=== PATIENT | female | born 1990 | race Caucasian/White ===

== ENCOUNTER 2018-06-29 02:36 | Emergency (ER) | payer MEDICAID ==
[~2018-06-29] VITALS: Ht 162.6 cm; Wt 69.2 kg
[~2018-06-29 02:36] MED LIST: [UNRECOGNIZED DRUG - CODE] PO
[2018-06-29 02:42] VITALS: BP 110/75
== END 2018-06-29 03:41 | disposition left against medical advice (07) ==
LOC: ER 03:11
DX: Z53.21 Procedure and treatment not carried out due to patient leaving prior to being seen by health care provider (principal)

== ENCOUNTER 2021-11-02 14:19 | Emergency (ER) | payer MEDICAID ==
[~2021-11-02] VITALS: Ht 167.6 cm; Wt 82.0 kg
[~2021-11-02 14:19] MED LIST changes: +NORE0.3552 PO; -[UNRECOGNIZED DRUG - CODE] PO
[2021-11-02] MEDS ORDERED: ONDANSETRON 4MG ODT PO STA (15:50)
[2021-11-02] MEDS ORDERED: HYDROCODONE/ACETAMINOPHEN 5/325MG TABLET PO STA (15:50)
[2021-11-02] MEDS ORDERED: FAMOTIDINE 20MG TABLET PO ONE (16:00)
[2021-11-02 16:21] LABS: MEAN CORPUSCULAR HEMOGLOBIN 29.8 pg (28.0-32.0); MEAN CORPUSCULAR VOLUME 91.4 fL (81.0-99.0); MEAN PLATELET VOLUME 9.4 fl (7.4-10.4); PLATELET 288 x1000/uL (130-400); RED BLOOD CELL COUNT 5.03 mill/uL (4.2-5.4); RED CELL DISTRIBUTION WIDTH 13.7 % (11.6-14.6)
[2021-11-02 16:28] LABS: CHLORIDE 111 mEq/L (98-107)
[2021-11-02 16:35] LABS: HCG SCREEN NEGATIVE
[2021-11-02 17:02] VITALS: BP 120/74
[2021-11-02] MEDS ORDERED: ONDANSETRON HCL 4MG/2ML INJ IV ONE (17:45)
[2021-11-02] MEDS ORDERED: LOPERAMIDE HCL 2MG CAPSULE PO ONE (17:45)
[2021-11-02] MEDS ORDERED: SODIUM CHLORIDE 0.9% 1,000 ML IV ONE (17:45)
[2021-11-02 18:57] LABS: CLARITY URINE CLOUDY (CLEAR); COLOR URINE DARK YELLOW (YELLOW); KETONES URINE 1+ (NEGATIVE); LEUKOCYTE ESTERASE URINE TRACE (NEGATIVE); NITRITE URINE NEGATIVE (NEGATIVE); OCCULT BLOOD URINE 1+ (NEGATIVE); PROTEIN URINE TRACE (NEGATIVE); SPECIFIC GRAVITY URINE 1.029 (1.005-1.030); UROBILINOGEN URINE 0.2 E.U./dL (0.2-1.0)
[2021-11-02] MEDS ORDERED: FAMO-135 MT (19:55)
[2021-11-02] MEDS ORDERED: IMOD MT (19:55)
[2021-11-02] MEDS ORDERED: ONDA4TAB5 MT (19:55)
[2021-11-02] MEDS ORDERED: ONDANSETRON 4MG ODT PO ONE (20:15)
[2021-11-02 20:56] LABS: PLATELET ESTIMATE NORMAL
== END 2021-11-02 20:11 | disposition home or self-care (01) ==
LOC: ER 14:31
DX: R10.13 Epigastric pain (principal); R11.2 Nausea with vomiting, unspecified; R42 Dizziness and giddiness; R19.7 Diarrhea, unspecified; K76.0 Fatty (change of) liver, not elsewhere classified
CPT/HCPCS: 36415; 74176; 76705; 80053; 81003; 83690; 84703; 85025; 93005; 99285; J7030; Q0162